=== PATIENT | male | born 1990 | race Caucasian/White ===

== ENCOUNTER 2016-09-25 19:10 | Emergency (ER) | payer MEDICAID, OTHER ==
[~2016-09-25] VITALS: Ht 200.7 cm; Wt 97.5 kg
[2016-09-25 19:11] VITALS: BP 131/87; PULSE 67; RESP 18; TEMP 98; O2SAT 96
--- NOTE | 2016-09-25 19:59 | PD ---
HPI Chief Complaint: GI Complaint Time Seen by Provider: 19:59 Travel History International Travel<30 days: No Contact w/Intl Traveler<30days: No Traveled to known affect area: No History of Present Illness HPI 26-year-old male presents to the ED for evaluation of less than 24-hour history of rectal bleeding. Patient states that he had a firm bowel movement today, noted that the "whole bowl was crimson." He states that he has had smaller amounts of blood on the paper during the course of the day. He denies abdominal pain, anorexia, nausea, vomiting, melena. He denies dizziness, weakness, shortness of breath, DORAN. He denies history of bleeding problems. Does not take aspirin. Denies chronic health problems, takes no daily medications. NKDA. PFSH Past Medical History ADHD: Yes Bipolar Disorder: Yes Cancer: No Cardiovascular Problems: No Diabetes: No Diminished Hearing: No Genitourinary: No Musculoskeletal: No Neurologic: No Psychiatric: Yes (H/O PREVIOUS SUICIDE ATTEMPT) Reproductive: No Respiratory: No Immunizations Current: Yes Migraines: No Seizures: No Thyroid Disease: No Ulcer: No Past Surgical History Appendectomy: No Cholecystectomy: No Other Surgery: No Social History Alcohol Use: No Tobacco Use: No Substance Use: No Allergies-Medications (Allergen,Severity, Reaction): Coded Allergies: No Known Allergies (Unverified , 09/25/16) Reported Meds & Prescriptions Reported Meds & Active Scripts Active No Active Prescriptions or Reported Medications Review of Systems Except as stated in HPI: all other systems reviewed are Neg Physical Exam Narrative GENERAL: Well-nourished, well-developed tall, thin white male in no acute distress. SKIN: Warm and dry. HEAD: Normocephalic. EYES: No scleral icterus. No injection or drainage. NECK: Supple, trachea midline. No JVD or lymphadenopathy. CARDIOVASCULAR: Regular rate and rhythm without murmurs, gallops, or rubs. 2+ DP and radial pulses bilaterally. RESPIRATORY: Breath sounds clear and equal bilaterally. No accessory muscle use. GASTROINTESTINAL: Abdomen soft, non-tender, nondistended. Active bowel sounds RECTAL EXAM: No masses or tenderness, stool is brown. No external hemorrhoids noted. Guaiac positive. MUSCULOSKELETAL: No cyanosis, or edema. Patient is observed to walk with a normal gait. BACK: Nontender without obvious deformity. No CVA tenderness. Data Data Last Documented VS Vital Signs Date Time Temp Pulse Resp B/P Pulse Ox O2 Delivery O2 Flow Rate FiO2 09/25/16 19:48 20 09/25/16 19:11 98.0 67 131/87 96 Room Air Orders Complete Blood Count With Diff (09/25/16 20:19) Comprehensive Metabolic Panel (09/25/16 20:19) Prothrombin Time / Inr (Pt) (09/25/16 20:19) Act Partial Throm Time (Ptt) (09/25/16 20:19) Urinalysis - C+S If Indicated (09/25/16 20:19) Ecg Monitoring (09/25/16 20:19) Iv Access Insert/Monitor (09/25/16 20:19) Oximetry (09/25/16 20:19) Sodium Chloride 0.9% Flush (Ns Flush) (09/25/16 20:30) Mandatory Outpatient Referral (09/25/16 22:26) Labs Laboratory Tests Test 09/25/16 09/25/16 21:15 21:30 Urine Color YELLOW Urine Turbidity HAZY Urine pH 7.0 Urine Specific [place] 1.016 Urine Protein NEG mg/dL Urine Glucose (UA) NEG mg/dL Urine Ketones NEG mg/dL Urine Occult Blood NEG Urine Nitrite NEG Urine Bilirubin NEG Urine Urobilinogen LESS THAN 2.0 MG/DL Urine Leukocyte Esterase NEG Urine RBC 1 /hpf Urine WBC 5 /hpf Urine Squamous Epithelial <1 /hpf Cells Urine Amorphous Sediment RARE Urine Mucus FEW /lpf Microscopic Urinalysis Comment CULT NOT INDICATED White Blood Count 8.2 TH/MM3 Red Blood Count 5.07 MIL/MM3 Hemoglobin 14.7 GM/DL Hematocrit 42.2 % Mean Corpuscular Volume 83.2 FL Mean Corpuscular Hemoglobin 29.1 PG Mean Corpuscular Hemoglobin 34.9 % Concent Red Cell Distribution Width 12.7 % Platelet Count 240 TH/MM3 Mean Platelet Volume 8.9 FL Neutrophils (%) (Auto) 48.1 % Lymphocytes (%) (Auto) 41.9 % Monocytes (%) (Auto) 8.1 % Eosinophils (%) (Auto) 1.3 % Basophils (%) (Auto) 0.6 % Neutrophils # (Auto) 3.9 TH/MM3 Lymphocytes # (Auto) 3.4 TH/MM3 Monocytes # (Auto) 0.7 TH/MM3 Eosinophils # (Auto) 0.1 TH/MM3 Basophils # (Auto) 0.0 TH/MM3 CBC Comment DIFF FINAL Differential Comment Prothrombin Time 10.8 SEC Prothromb Time International 1.0 RATIO Ratio Activated Partial 27.1 SEC Thromboplast Time Sodium Level 142 MEQ/L Potassium Level 4.0 MEQ/L Chloride Level 105 MEQ/L Carbon Dioxide Level 30.6 MEQ/L Anion Gap 6 MEQ/L Blood Urea Nitrogen 14 MG/DL Creatinine 1.10 MG/DL Estimat Glomerular Filtration 82 ML/MIN Rate Random Glucose 99 MG/DL Calcium Level 8.7 MG/DL Total Bilirubin 0.5 MG/DL Aspartate Amino Transf 39 U/L (AST/SGOT) Alanine Aminotransferase 51 U/L (ALT/SGPT) Alkaline Phosphatase 53 U/L Total Protein 7.3 GM/DL Albumin 4.1 GM/DL [facility] Medical Decision Making Medical Screen Exam Complete: Yes Emergency Medical Condition: Yes Differential Diagnosis External hemorrhoids versus GI bleed versus anemia versus electrolyte abnormality versus other Narrative Course 26-year-old male presents to the ED for evaluation of less than 24-hour history of rectal bleeding. Patient states that he had a firm bowel movement today, noted that the "whole bowl was crimson." He states that he has had smaller amounts of blood on the paper during the course of the day. He denies abdominal pain, anorexia, nausea, vomiting, melena. He denies dizziness, weakness, shortness of breath, DORAN. He denies history of bleeding problems. Does not take aspirin. Vitals reviewed. Physical exam reveals a thin, tall white male in no acute distress. Chest is clear to auscultation bilaterally, abdomen soft, nontender. Rectal exam reveals brown stool, no sign of external hemorrhoids. Guaiac positive. CBC: No leukocytosis or anemia. INR 1.0. CMP: No abnormalities of the chemistries. UA no culture indicated. This is GI bleeding. Mandatory outpatient consult was placed. I discussed the results of the workup with the patient. I started him to avoid aspirin and NSAIDs, expect a follow-up call from the hospital concerning his appointment. Discussed reasons to return to the ED. The patient indicated understanding of instructions, is amenable to the plan of care. He is stable and discharged home. [facility] Point of Care Internal Pos. & Neg. Controls: Passed Fecal Specimen Occult Blood: Positive Diagnosis Primary Impression: GI bleed Qualified Code: K92.2 - Gastrointestinal hemorrhage, unspecified gastrointestinal hemorrhage type Referrals: [facility] Patient Instructions: Gastrointestinal Bleeding (ED), General Instructions Additional Instructions: Avoid aspirin and NSAIDs. Mandatory outpatient consult has been placed with gastroenterology on your behalf. Assure that your contact information is correct with registration. Expect a phone call in the next few days for follow-up appointment. Return to the ED for worsening of symptoms or any urgent or emergent medical condition. Scripts No Active Prescriptions or Reported Meds Disposition: 01 DISCHARGE HOME Condition: Stable Eri Chadwick Sep 25, 2016 19:59
[2016-09-25] MEDS ORDERED: SODIUM CHLORIDE 0.9% FLUSH 5 ML FLUSH IVF PRN (20:30)
[2016-09-25 21:30] VITALS: RESP 20; O2SAT 98
[2016-09-25 21:49] LABS: AUTOMATED NEUTROPHIL # 3.9 TH/MM3 (1.8-7.7); BASOPHIL % 0.6 % (0.0-2.0); EOSINOPHIL # 0.1 TH/MM3 (0-0.4); EOSINOPHIL % 1.3 % (0.0-4.0); HEMATOCRIT 42.2 % (39.0-51.0); HEMO FLAGS DIFF FINAL; LYMPH % 41.9 % (9.0-44.0); LYMPHOCYTE # 3.4 TH/MM3 (1.0-4.8); MEAN CELL VOLUME 83.2 FL (80.0-100.0); MEAN CORPUSCULAR HEMOGLOBIN 29.1 PG (27.0-34.0); MEAN CORPUSCULAR HGB CONC 34.9 % (32.0-36.0); MONO % 8.1 % (0.0-8.0); NEUT % 48.1 % (16.0-70.0); PLATELET COUNT 240 TH/MM3 (150-450); RED BLOOD COUNT 5.07 MIL/MM3 (4.50-5.90); RED CELL DISTRIBUTION WIDTH 12.7 % (11.6-17.2); WHITE BLOOD COUNT 8.2 TH/MM3 (4.0-11.0)
[2016-09-25 22:00] LABS: APTT (PATIENT) 27.1 SEC (24.3-30.1); PROTHROMBIN TIME - PATIENT 10.8 SEC (9.8-11.6)
[2016-09-25 22:19] LABS: BLOOD, URINE NEG (NEG); COMMENT (UR) CULT NOT INDICATED; CULTURE IF INDICATED CULT NOT INDICATED; GLUCOSE,URINE NEG (NEG); KETONE, URINE NEG (NEG); MUCUS URINE FEW /lpf (OCC); NITRITE,URINE NEG (NEG); SQUAMOUS EPITHELIAL CELL URINE <1 /hpf (0-5); URINE COLOR YELLOW (YELLW/STRAW)
[2016-09-25 22:22] LABS: ALT (GPT) 51 U/L (12-78); ANION GAP 6 MEQ/L (5-15); AST (GOT) 39 U/L (15-37); BICARBONATE 30.6 MEQ/L (21.0-32.0); BLOOD UREA NITROGEN 14 MG/DL (7-18); CHLORIDE 105 MEQ/L (98-107); GLOMERULAR FILTRATION RATE 82 ML/MIN (>89); SODIUM (NA) 142 MEQ/L (136-145)
[2016-09-25 22:23] LABS: ALKALINE PHOSPHATASE 53 U/L (45-117); TOTAL BILIRUBIN ADULT 0.5 MG/DL (0.2-1.0)
[2016-09-25 23:14] VITALS: BP 120/80
== END 2016-09-25 23:15 | disposition home or self-care (01) ==
LOC: NEPA 19:10
DX: K92.2 Gastrointestinal hemorrhage, unspecified (principal)
CPT/HCPCS: 80053; 81001; 85025; 85610; 85730; 99283